=== PATIENT | male | born 1990 | race Hispanic/Latino ===

== ENCOUNTER 2020-10-13 13:49 | Emergency (ER) | payer SELFPAY ==
[2020-10-13 13:51] VITALS: BP 143/75; PULSE 93; RESP 18; TEMP 36.9; O2SAT 100
[2020-10-13 14:09] LABS: Basophils Absolute Auto 0.1 K/mm3 (0.0-0.1); Basophils Percent Auto 0.6 % (0.2-1.2); Eosinophils Percent Auto 0.2 % (0-4.4); Hematocrit 43.5 % (42.0-52.0); Hemoglobin 15.8 g/dL (14.0-18.0); Immature Granulocyte Absolute 0.02 K/mm3 (0.00-0.031); Immature Granulocyte Percent A 0.2 % (0-0.5); Lymphocytes Absolute Auto 2.25 K/mm3 (0.9-3.2); Lymphocytes Percent Auto 24.8 % (18.3-44.2); Mean Corpuscular HGB Conc 36.3 g/dl (32-36); Mean Corpuscular Hemoglobin 33.3 pg (26-34); Mean Corpuscular Volume 91.8 fl (80-100); Mean Platelet Volume 9.4 fl (7.4-10.4); Monocytes Absolute Auto 0.5 K/mm3 (0.1-0.6); Monocytes Percent Auto 5.2 % (2.6-8.5); Neutrophils Absolute Auto 6.3 K/mm3 (1.3-6.7); Platelet Count Result 299 k/mm3 (150-375); Red Blood Count 4.74 M/mm3 (4.6-6.20); Red Cell Distribution Width 11.7 % (11.5-14.5); White Blood Count 9.1 K/mm3 (4.5-10.0)
[2020-10-13 14:22] LABS: Alanine Aminotransferase 18 U/L (4-50); Albumin Level 4.9 g/dL (3.5-5.1); Alkaline Phosphatase 66 U/L (38-126); Anion Gap 8 mmol/L (8-16); Aspartate Amino Transferase 39 U/L (17-59); Bilirubin,Total 0.5 mg/dL (0.2-1.3); Blood Urea Nitrogen 12 mg/dL (9-20); Calcium 9.4 mg/dL (8.4-10.2); Carbon Dioxide 30 mmol/L (22-30); Chloride 102 mmol/L (98-107); Estimated CRCL calculation 100 ml/min; Estimated Glomerular Filt Rate > 60; Glucose 82 mg/dL (75-110); Lipase 58 U/L (23-300); Potassium 3.5 mmol/L (3.4-5.0); Sodium 140 mmol/L (137-145)
[2020-10-13 14:23] LABS: Add Urine Microscopic? YES; Appearance Urine Clear (Clear); Bilirubin Urine Negative (Negative); Blood Urine Negative (Negative); Color Urine Straw (Yellow); Glucose Urine UA Negative (Negative); Ketones Urine Negative (Negative); Leukocyte Esterase Ur 3+ LEU/UL (Negative); Nitrate Urine Negative (Negative); Protein Urine Negative (Negative); Specific Grav Ur 1.011 (1.001-1.035); Urobilinogen Urine Negative mg/dL (<2.0); WBC Urine 51-75 /hpf
[2020-10-13 17:46] VITALS: BP 138/72; PULSE 76; RESP 18; O2SAT 99
[2020-10-13] MEDS: cefTRIAXone 250 MG VIAL 500 MG IM (18:42)
[2020-10-13 19:23] VITALS: BP 134/85; PULSE 78; RESP 16; TEMP 36.7; O2SAT 98
--- NOTE | 2020-10-13 19:44 | ED.GENADULT ---
HPI - General Adult General Chief complaint: Urogenital-Male Stated complaint: urinating blood Time Seen by Provider: 10/13/20 17:39 Source: patient Mode of arrival: ambulatory Limitations: no limitations History of Present Illness HPI narrative: Patient presents with chief complaint of pain with urination and burning over the past 4 days. Patient states that his partner was told that she had a STD and they have a unprotected sex. Patient states that she received antibiotics for her infection. Patient denies known HIV or hepatitis exposure. Patient denies any sores or lesions to his genitals. Patient also reports some nausea and a few episodes of vomiting. He states he saw some blood after urinating but has not seen any today. He denies any pain other than with urination. Patient denies any other symptoms or concerns. Related Data Allergies Allergy/AdvReac Type Severity Reaction Status Date / Time No Known Allergies Allergy Verified 10/13/20 18:17 Review of Systems Review of Systems: Narrative: CONSTITUTIONAL: Denies fever, chills, or sweats. EYES: Denies visual changes, redness, or discharge. ENT: Denies rhinorrhea, congestion, sore throat, or otalgia. CARDIOVASCULAR: Denies chest pain, palpitations, or edema. RESPIRATORY: Denies cough or dyspnea. GASTROINTESTINAL: Reports nausea and vomiting x2 denies abdominal pain or diarrhea. GENITOURINARY: Reports penile pain and discharge and hematuria. SKIN: Denies rash or itching. MUSCULOSKELETAL: Denies back pain, joint pain, or myalgia. NEUROLOGIC: Denies headache, numbness, dizziness, or weakness. PSYCHIATRIC: Denies anxiety or depression. Exam Narrative: Exam Narrative: GENERAL: Well-appearing, well-nourished. HEAD: Normocephalic, atraumatic. EYES: PERRLA and EOMI. CHEST: Clear to auscultation. No respiratory distress. No wheezes rales or rhonchi HEART: Regular rate and rhythm. Normal peripheral pulses. ABDOMEN: Soft, nontender, nondistended, normal active bowel sounds. No bruises noted. TREE INSPECTOR: Penile discharge noted. No sores or lesions noted to penis or testicles. No blood noted. EXTREMITIES: No acute changes in ROM. No edema. SKIN: Warm, dry, no rash. NEURO: No focal deficits. Alert and oriented x3. PSYCH: Normal mood and affect. Course Vital Signs Vital signs: Vital Signs Temperature 98.5 F 10/13/20 13:51 Pulse Rate 93 10/13/20 13:51 Respiratory Rate 18 10/13/20 13:51 Blood Pressure 143/75 H 10/13/20 13:51 Pulse Oximetry 100 10/13/20 13:51 Temperature 98.0 F 10/13/20 19:23 Pulse Rate 78 10/13/20 19:23 Respiratory Rate 16 10/13/20 19:23 Blood Pressure 134/85 10/13/20 19:23 Pulse Oximetry 98 10/13/20 19:23 Medical Decision Making MDM Narrative Medical decision making narrative: Patient is treated for gonorrhea and chlamydia. Patient instructed of the importance of following up with his primary care for full STD panel testing. Patient strictly not to have any sexual intercourse and of the importance of finishing out his doxycycline prescription. Patient instructed to return to emergency department if he develops any emergent symptoms. Differential Diagnosis Differential Diagnosis: Kidney stone, UTI, gonorrhea, chlamydia Vital Signs Vital Signs: Vital Signs Temperature 98.5 F 10/13/20 13:51 Pulse Rate 93 10/13/20 13:51 Respiratory Rate 18 10/13/20 13:51 Blood Pressure 143/75 H 10/13/20 13:51 Pulse Oximetry 100 10/13/20 13:51 Temperature 98.0 F 10/13/20 19:23 Pulse Rate 78 10/13/20 19:23 Respiratory Rate 16 10/13/20 19:23 Blood Pressure 134/85 10/13/20 19:23 Pulse Oximetry 98 10/13/20 19:23 Lab Data Result diagrams: 10/13/20 13:58 10/13/20 13:58 Labs: Lab Results 10/13/20 10/13/20 10/13/20 Range/Units 13:58 13:58 14:02 WBC 9.1 (4.5-10.0) K/mm3 RBC 4.74 (4.6-6.20) M/mm3 Hgb 15.8 (14.0-18.0) g/dL Hct 43.5 (42.0-52.0) % MCV
== END 2020-10-13 19:45 | disposition home or self-care (01) ==
PROVIDERS: Emergency Medicine; Emergency Provider Emergency Medicine
DX: R31.9 Hematuria, unspecified (principal); Z11.3 Encounter for screening for infections with a predominantly sexual mode of transmission
CPT/HCPCS: 36415; 80053; 81001; 83690; 85025; 87086; 96372; 99283; J0696